=== PATIENT | female | born 1985 | race Caucasian/White ===

== ENCOUNTER 2016-08-28 15:15 | Emergency (ER) | payer OTHER ==
[~2016-08-28] VITALS: Ht 167.6 cm; Wt 102.0 kg
[2016-08-28 17:42] VITALS: BP 114/69
== END 2016-08-28 17:42 | disposition home or self-care (01) ==
LOC: ED 15:15
DX: M54.12 Radiculopathy, cervical region (principal)

== ENCOUNTER 2017-03-30 17:02 | Emergency (ER) | payer OTHER ==
[~2017-03-30] VITALS: Ht 167.6 cm; Wt 101.2 kg
[2017-03-30 21:36] VITALS: BP 124/83
== END 2017-03-30 21:36 | disposition home or self-care (01) ==
LOC: ED 17:02
DX: R20.2 Paresthesia of skin (principal); M25.511 Pain in right shoulder; M25.512 Pain in left shoulder
CPT/HCPCS: J1885